=== PATIENT | female | born 1985 | race Caucasian/White ===

== ENCOUNTER 2020-04-06 01:32 | Outpatient (CLI) | payer BC, SELFPAY ==
[2020-04-06 18:47] LABS: SARS-CoV-2 RNA PCR Negative
== END 2020-04-06 01:33 | disposition home or self-care (01) ==
LOC: ANHCOVIDDT 01:32
PROVIDERS: PCP Family Medicine; Visit Provider Obstetrics & Gynecology
DX: Z01.812 Encounter for preprocedural laboratory examination (principal); Z20.822 Contact with and (suspected) exposure to COVID-19
CPT/HCPCS: C9803; U0003; U0005

== ENCOUNTER 2020-04-10 01:17 | Day surgery (SDC) | payer BC, SELFPAY ==
[2020-04-05 14:28] VITALS: BMI 31.7
--- NOTE | 2020-04-10 08:43 | P.HP_ITS ---
H&P: HPI History of Present Illness Date/Time: 04/10/20 08:43 Chief Complaint: Heavy bleeding. Narrative: 35 y/o whose has had a vasectomy. She does not desire any future childbearing. Her menses are heavy and last 6 days each. She is interested in surgical management of her bleeding. Review of Systems Review of Systems: All systems reviewed & are unremarkable except as noted in HPI and below PMFSH Past Medical History Medical History Eczema Rheumatoid arthritis Surgical History Surgical History History of dilation and curettage History of LEEP (loop electrosurgical excision procedure) of cervix complicating Social History Social History Smoking status: Never smoker Living arrangements: with family Spiritual care concerns: No Meds Home Medications and Allergies Home Medications Medication Instructions Recorded Confirmed Type hydroxychloroquine 200 mg PO BID 04/05/20 04/05/20 History Allergies Allergy/AdvReac Type Severity Reaction Status Date / Time No Known Allergies Allergy Unverified 04/05/20 14:15 Exam Const: Orientation/consciousness: patient oriented x3 Other: Well- developed, well-nourished female in no acute distress. Neck: Thyroid: thyroid normal Lymphatic: no lymphadenopathy noted (in neck, axilla or inguinal nodes) Resp: Effort & Inspection: normal respiratory effort Auscultation: clear to auscultation bilaterally Cardio: Rate: regular rate Rhythm: regular rhythm Heart sounds: S1 normal heart sound present and S2 normal heart sound present GI: Other: ABD: Soft, nontender, nondistended. No guarding or rebound tenderness. No hepatosplenomegaly. : General: Yes no CVA tenderness Other: External genitalia: normal female hair distribution, without lesion. Urethral meatus: no lesion, non prolapsed. Bladder: no mass, nontender Vagina: well-estrogenized, without lesion or discharge. No cystocele or rectocele. Cervix: no lesion or discharge. Uterus: small, anteverted, freely mobile, nontender Adnexa: no mass or tenderness. Anus/perineum: no lesions, nontender Back/Spine/Pelvis: Back: no CVA tenderness Skin: General skin exam: normal color and no rashes or lesions noted Neuro: General: patient oriented x3 Extrem: Other: Extremities: nontender with no edema Psych: Mental Status: mental status grossly normal Affect: normal affect Assessment and Plan Assessment and plan (1) Menorrhagia: Code(s): N92.0 - Excessive and frequent menstruation with regular cycle Status: Acute Assessment and Plan: A: Menorrhagia. P: Reviewed medical vs. surgical management approaches. She is interested in hysteroscopy, dilationand curettage and endometrial ablation. She understands risks of surgery to include risks of anesthesia, risks of pain, infection, bleeding, blood products, thromboembolic phenomena and damage to adjacent stru ctures such as bowel, bladder, ureters, blood vessels and nerves. She understands all these risks and elects to proceed with surgery.
[2020-04-10] MEDS: ACETAMINOPHEN 500 MG TABLET 1000 MG PO (11:47)
[2020-04-10] MEDS: LACTATED RINGERS 1,000 ML 30 ML IV CONT (11:57)
--- NOTE | 2020-04-10 12:00 | WPDHPUPDATE1 ---
History and Physical Update Update Date/Time: 04/10/20 12:00 History and Physical has been reviewed, including an updated exam of the patient. There are NO changes in the patient's condition. Risks, benefits, and alternatives have been discussed and questions answered. Patient agrees to proceed with procedure.
[2020-04-10 12:04] VITALS: BP 129/84; PULSE 81; RESP 20; TEMP 35.8; O2SAT 100
--- NOTE | 2020-04-10 13:11 | WPDANESEPPF ---
Anes - Initial Pre Proc Eval Procedure: Operation Date: 04/10/20 13:30 Proposed Procedures p Hysteroscopy Dilation and Curettage With Isamar Ablation - Daniel Mi MD Date/Time: 04/10/20 13:11 Surgeon: Daniel Mi MD Pre Op Diagnosis: Irregular Bleeding Patient Data Age: 35 Gender: F Height: 5 ft 9 in Weight: 98.8 kg Last Vital Signs Temp 96.4 F L 04/10/20 12:04 Pulse 81 04/10/20 12:04 Resp 20 04/10/20 12:04 BP 129/84 04/10/20 12:04 Pulse Ox 100 04/10/20 12:04 Allergies Allergy/AdvReac Type Severity Reaction Status Date / Time No Known Allergies Allergy Verified 04/10/20 11:33 Home Medications Medication Instructions Recorded Confirmed Type hydroxychloroquine 200 mg PO BID 04/05/20 04/10/20 History Patient hx anesthesia problems: none Family hx anesthesia problems: none PMFSH Past Medical History Medical History Eczema Rheumatoid arthritis Surgical History Surgical History History of dilation and curettage History of LEEP (loop electrosurgical excision procedure) of cervix complicating Social History Social History Smoking status: Never smoker Living arrangements: with family Spiritual care concerns: No Anes - Eval Final PreProcedure Day of Procedure 04/10/20 13:11 Patient weight: obese Heart: regular rate and rhythm Lungs: clear to auscultation Airway: Mallampati scale class II Neurological: alert and oriented Last oral intake: >/= 8 hours ASA classification: II Emergent: no Anesthetic plan: proceed Anesthesia type and monitoring: general GIVS and standard monitoring Informed Consent: The patient's anesthetic plan and its attendant risks and benefits were discussed with the patient/family/POA. Questions were solicited and answers provided to the satisfaction of the patient/family/POA.
--- NOTE | 2020-04-10 13:28 | SUR.PREOP ---
Lopressor and then amiodarone given by Dr Sandhu. RT here to give xopenex. Patient suddenly became unresposive and grunting. Heart rate afib fell from 120 to 60, still afib. Surgery cancelled and patient will be transfered to ICU.
--- NOTE | 2020-04-10 13:31 | SUR.PREOP ---
Prior note was on the wrong patient.
[2020-04-10 14:02] VITALS: BP 154/76; PULSE 77; RESP 12; O2SAT 93
--- NOTE | 2020-04-10 14:03 | P.OP_ITS ---
Procedure Note - Detailed Date of procedure: 04/10/20 Pre-op diagnosis: Irregular Bleeding Menorrhagia Post-op diagnosis: same Procedure performed: Hysteroscopy Dilation and sharp curettage Endometrial ablation Description of procedure: The patient was taken to the operating room where she was prepared and draped in the usual sterile fashion in the dorsal lithotomy position. The bladder was drained with a red rubber catheter. A sterile speculum was placed into the vagina. The anterior lip of the cervix was grasped with single-tooth tenaculum. Ten mL of 1% lidocaine was administered in a paracervical block. The cervix was then gently dilated using Hegar dilators until an 8 mm dilator could be passed. Hysteroscopy was performed using sterile saline as a distention medium. Findings are as noted above. Sharp curettage was then performed, and endometrial curettings were collected on a Telfa pad and passed off to be sent to pathology. Finally, the the Isamar device was advanced and endometrial ablation commenced without difficulty. The device was withdrawn and a second look was taken using the hysteroscope. Excellent coverage of the endometrial cavity was noted. The tenaculum was removed. H emostasis was excellent. Sponge, lap, needle and instrument counts were correct. The patient was awakened and taken to the recovery room in stable condition. I was present and scrubbed through the entire procedure. Implants: None Anesthesia: MAC and local (1% lidocaine) Surgeon: Daniel Mi MD Estimated blood loss (mL): 5 Drains: No Packing: No Pathology: yes (Endometrial curettings) Complications: None Condition: stable Disposition: PACU Findings: Endometrial cavity unremarkable. Both tubal ostia seen. Uterus sounded to 8.5 cm with a cervical length of 3 cm, giving a subtracted uterine cavity length of 5.5 cm.
[2020-04-10 14:30] VITALS: BP 140/83; PULSE 83; O2SAT 96
[2020-04-10] MEDS: KETOROLAC 30 MG/ML VIAL (*BKC) IV PUSH (14:48)
[2020-04-10 15:00] VITALS: BP 140/84; PULSE 67
== END 2020-04-10 15:08 | disposition home or self-care (01) ==
PROVIDERS: PCP Family Medicine; Visit Provider Obstetrics & Gynecology
PROC: 0U5B8ZZ Destruction of Endometrium, Via Natural or Artificial Opening Endoscopic (ICD-10-PCS; CPT 58563; principal; 2020-04-10 13:30)
DX: N92.0 Excessive and frequent menstruation with regular cycle (principal); M10.9 Gout, unspecified; L30.9 Dermatitis, unspecified; E66.9 Obesity, unspecified; Z68.32 Body mass index [BMI] 32.0-32.9, adult
CPT/HCPCS: 58563; 88305; A9270; J1885; J2250; J2405; J2704; J3010; J7030; J7120